=== PATIENT | male | born 1980 | race Caucasian/White ===

== ENCOUNTER → 2016-06-17 | Outpatient (CLI) | payer BC ==
--- NOTE | 2016-06-17 16:18 | KCIC ---
PROCEDURE MRI left foot without contrast dated 06/17/2016. HISTORY Foot pain since 06/12/2016. Recently stepped on nail. Pus draining from wound site. TECHNIQUE T1 and STIR imaging performed in 3 planes to include the mid and forefoot region. No contrast administered. COMPARISON None. FINDINGS Study is limited due to poor signal and motion artifact. Area of skin thickening with small defect at the plantar aspect of the foot near the level of the 3rd MTP joint. There is some T2 hyperintense signal within the subcutaneous tissues that extends deep to the margin of the flexor tendon sheath. No well-defined fluid collection to suggest abscess. Flexor tendons are intact. No tendon sheath fluid. No definite retained foreign body, although evaluation can be limited in the absence of contrast material. Bone marrow signal is homogeneous. No marrow edema. No periostitis or bone destruction. No evidence of fracture. Visualized soft tissue structures are otherwise unremarkable. IMPRESSION - Skin defect and skin thickening at the plantar aspect of the foot near the level of the 3rd MTP joint, consistent with recent injury. There is a small amount of edema within the subcutaneous tissues that could represent underlying cellulitis. There is no drainable abscess. - No evidence of osteomyelitis. No apparent retained foreign body. Electronically signed by: aSlty Murillo (Jun 17, 2016 16:17:35)
== END | disposition home or self-care (01) ==
LOC: KCIC MRI 14:32
PROVIDERS: ATTEND Family Medicine
DX: M79.672 Pain in left foot (principal)
CPT/HCPCS: 73718